=== PATIENT | female | born 1940 | race Caucasian/White ===

== ENCOUNTER 2018-06-25 10:05 | Day surgery (SDC) | payer OTHER, BC ==
[2018-06-23 11:54] LABS: BILIRUBIN,URINE NEGATIVE (NEGATIVE); BLOOD, URINE NEGATIVE (NEGATIVE); CLARITY/URINE CLEAR (CLEAR); COLOR,URINE YELLOW (YELLOW); GLUCOSE,URINE NEGATIVE (NEGATIVE); KETONES,URINE NEGATIVE (NEGATIVE); LEUKOCYTE ESTERASE ,URINE NEGATIVE (NEGATIVE); NITRITE, URINE NEGATIVE (NEGATIVE); PROTEIN URINE NEGATIVE (NEGATIVE); UROBILINOGEN,URINE 0.2 (0.2-1.0)
[2018-06-23 11:58] LABS: BASOPHILS % (AUTO) 0.7 % (0.0-2.0); EOSINOPHILS # (AUTO) 0.1 K/uL (0.0-0.4); EOSINOPHILS % (AUTO) 2.9 % (0.0-4.0); HEMATOCRIT 39.8 % (36-48); HEMOGLOBIN 13.2 g/dL (12.0-16.0); LYMPHOCYTES # (AUTO) 0.7 K/uL (1.0-5.5); LYMPHOCYTES % (AUTO) 17.2 % (20.5-51.5); MEAN CORPUSCULAR HEMOGLOBIN 30 pg (27-31); MEAN CORPUSCULAR HGB CONC 33 % (32-36); MEAN CORPUSCULAR VOLUME 90 fL (79.0-98.0); MONOCYTES # (AUTO) 0.5 K/uL (0.0-1.0); MONOCYTES % (AUTO) 12.8 % (1.7-9.3); NEUTROPHILS # (AUTO) 2.8 K/uL (1.8-7.7); NEUTROPHILS % (AUTO) 66.4 % (40.0-70.0); PLATELET COUNT (AUTO) 258 K/uL (130-430); RED CELL DISTRIBUTION WIDTH 12.9 % (9.0-15.0); WHITE BLOOD COUNT (AUTO) 4.1 K/uL (4.8-10.8)
[2018-06-23 12:04] LABS: ANION GAP 5 (5-15); CALCIUM 9.8 mg/dL (8.4-11.0); CHLORIDE 106 mmol/L (98-107); CREATININE 0.98 mg/dL (0.55-1.30); GLUCOSE 83 mg/dL (70-99); POTASSIUM 4.1 mmol/L (3.5-5.1); SODIUM SERUM 139 mmol/L (136-145); UREA NITROGEN, BLOOD 22 mg/dL (8-21)
[2018-06-23 12:09] LABS: PROTHROMBIN TIME 9.9 SECS (9.5-12.5)
[~2018-06-25] VITALS: Ht 154.9 cm; Wt 61.2 kg
[2018-06-25] MEDS ORDERED: fentaNYL CITRATE/PF 100 MCG/2 ML AMP IVP PRN ×2 (12:15)
[2018-06-25] MEDS ORDERED: KETOROLAC TROMETHAMINE 30 MG VIAL IVP PRN (12:15)
[2018-06-25] MEDS ORDERED: METOCLOPRAMIDE HCL 10 MG/2 ML VIAL IVP PRN (12:15)
[2018-06-25] MEDS ORDERED: NS IRRIG SOLN 5000 ML IR ONE (12:50)
[2018-06-25] MEDS ORDERED: PROPOFOL 200MG/ 20ML VIAL (DIPRIVAN) IV ONE (12:50)
[2018-06-25] MEDS ORDERED: BUPIVACAINE /EPINEPHRINE/PF 0.25% 30 ML VIAL INJ ONE (12:50)
[2018-06-25] MEDS ORDERED: SEVOFLURANE 15 MIN GAS INH ONE (12:50)
[2018-06-25] MEDS ORDERED: ONDANSETRON HCL 4 MG/2 ML VIAL ONE (12:50)
[2018-06-25] MEDS ORDERED: fentaNYL CITRATE/PF 100 MCG/2 ML AMP ONE (12:50)
[2018-06-25] MEDS ORDERED: KETOROLAC TROMETHAMINE 30 MG VIAL ONE (12:50)
[2018-06-25] MEDS ORDERED: MIDAZOLAM HCL 5 MG/ML VIAL (VERSED) IV ONE (12:50)
[2018-06-25] MEDS ORDERED: LR 1,000 ML IV.SOLN IV ONE (12:50)
[2018-06-25] MEDS ORDERED: traMADol HCL HCL 50 MG TABLET (ULTRAM) PO ONE (14:45)
[2018-06-25] MEDS ORDERED: traMADol HCL HCL 50 MG TABLET (ULTRAM) ONE (14:49)
[2018-06-25 15:26] VITALS: BP_SYST 145
== END 2018-06-25 15:26 | disposition home or self-care (01) ==
LOC: SDS 10:05 → SMU 10:05 → SDS 15:26
PROVIDERS: ATTEND Orthopaedic Surgery
DX: S83.282A Other tear of lateral meniscus, current injury, left knee, initial encounter (principal); S83.242A Other tear of medial meniscus, current injury, left knee, initial encounter; I10 Essential (primary) hypertension; F32.9 Major depressive disorder, single episode, unspecified; R79.1 Abnormal coagulation profile; X58.XXXA Exposure to other specified factors, initial encounter; Y93.9 Activity, unspecified; Y92.89 Other specified places as the place of occurrence of the external cause; Y99.9 Unspecified external cause status; Z85.828 Personal history of other malignant neoplasm of skin; Z90.49 Acquired absence of other specified parts of digestive tract; Z98.890 Other specified postprocedural states; Z88.2 Allergy status to sulfonamides; Z88.8 Allergy status to other drugs, medicaments and biological substances
CPT/HCPCS: 29880; 36415; 71046; 80048; 81003; 85025; 85610; 85730; 93005; J1885; J2250; J2405; J2704; J3010; J3490; J7120

== ENCOUNTER 2019-08-04 10:58 | Day surgery (SDC) | payer OTHER, BC ==
[2019-08-03 13:01] LABS: BILIRUBIN,URINE NEGATIVE (NEGATIVE); BLOOD, URINE NEGATIVE (NEGATIVE); CLARITY/URINE CLEAR (CLEAR); COLOR,URINE YELLOW (YELLOW); GLUCOSE,URINE NEGATIVE (NEGATIVE); KETONES,URINE NEGATIVE (NEGATIVE); LEUKOCYTE ESTERASE ,URINE NEGATIVE (NEGATIVE); NITRITE, URINE NEGATIVE (NEGATIVE); PROTEIN URINE NEGATIVE (NEGATIVE); UROBILINOGEN,URINE 0.2 (0.2-1.0)
[2019-08-03 13:07] LABS: ANION GAP 4 (5-15); CALCIUM 9.3 mg/dL (8.4-11.0); CHLORIDE 106 mmol/L (98-107); CREATININE 0.83 mg/dL (0.55-1.30); GLUCOSE 94 mg/dL (70-99); POTASSIUM 4.4 mmol/L (3.5-5.1); SODIUM SERUM 141 mmol/L (136-145); UREA NITROGEN, BLOOD 15 mg/dL (8-21)
[2019-08-03 13:11] LABS: PROTHROMBIN TIME 9.8 SECS (9.5-12.5)
[2019-08-03 13:49] LABS: BASOPHILS % (AUTO) 0.8 % (0.0-2.0); EOSINOPHILS # (AUTO) 0.1 K/uL (0.0-0.4); EOSINOPHILS % (AUTO) 2.1 % (0.0-4.0); HEMATOCRIT 39.7 % (36-48); HEMOGLOBIN 13.4 g/dL (12.0-16.0); LYMPHOCYTES # (AUTO) 0.9 K/uL (1.0-5.5); LYMPHOCYTES % (AUTO) 18.2 % (20.5-51.5); MEAN CORPUSCULAR HEMOGLOBIN 31 pg (27-31); MEAN CORPUSCULAR HGB CONC 34 % (32-36); MEAN CORPUSCULAR VOLUME 92 fL (79.0-98.0); MONOCYTES # (AUTO) 0.7 K/uL (0.0-1.0); MONOCYTES % (AUTO) 12.9 % (1.7-9.3); NEUTROPHILS # (AUTO) 3.3 K/uL (1.8-7.7); PLATELET COUNT (AUTO) 216 K/uL (130-430); RED BLOOD CELL COUNT(AUTO) 4.35 MIL/uL (4.2-6.2); RED CELL DISTRIBUTION WIDTH 13.8 % (9.0-15.0); WHITE BLOOD COUNT (AUTO) 5.1 K/uL (4.8-10.8)
[~2019-08-04] VITALS: Ht 154.9 cm; Wt 61.2 kg
[2019-08-04] MEDS ORDERED: BUPIVACAINE /PF 0.5% 30 ML VIAL INJ ONE (12:30)
[2019-08-04] MEDS ORDERED: MIDAZOLAM HCL 5 MG/5 ML VIAL IVP ONE (12:30)
[2019-08-04] MEDS ORDERED: LIDOCAINE 1% 10 MG/ML, 50 ML MDV INJ ONE (12:30)
[2019-08-04] MEDS ORDERED: PROPOFOL 200MG/ 20ML VIAL (DIPRIVAN) IV ONE (12:30)
[2019-08-04] MEDS ORDERED: NS IRRIG SOLN 1000 ML IR ONE (12:30)
[2019-08-04] MEDS ORDERED: HYDROcodone/ACETAMIN 5-325 MG TAB (NORCO/ VICODIN) PO ONE (14:45)
[2019-08-04] MEDS ORDERED: HYDROcodone/ACETAMIN 5-325 MG TAB (NORCO/ VICODIN) ONE (14:59)
[2019-08-04 15:59] VITALS: BP_SYST 160
== END 2019-08-04 15:30 | disposition home or self-care (01) ==
LOC: SDS 10:58 → SMU 10:58 → SDS 15:30
PROVIDERS: ATTEND Orthopaedic Surgery
DX: M65.4 Radial styloid tenosynovitis [de Quervain] (principal); L90.5 Scar conditions and fibrosis of skin; L98.8 Other specified disorders of the skin and subcutaneous tissue; F95.2 Tourette's disorder; E78.00 Pure hypercholesterolemia, unspecified; M19.90 Unspecified osteoarthritis, unspecified site; I10 Essential (primary) hypertension; K58.9 Irritable bowel syndrome, unspecified; G47.33 Obstructive sleep apnea (adult) (pediatric); G62.9 Polyneuropathy, unspecified; Z88.5 Allergy status to narcotic agent; Z88.1 Allergy status to other antibiotic agents; Z88.8 Allergy status to other drugs, medicaments and biological substances; Z90.49 Acquired absence of other specified parts of digestive tract; Z98.890 Other specified postprocedural states; Z79.01 Long term (current) use of anticoagulants; Z85.828 Personal history of other malignant neoplasm of skin
CPT/HCPCS: 11402; 25000; 36415; 71046; 80048; 81003; 85025; 85610; 85730; 88304; 93005; J2001; J2250; J2704; J3490; J7120